=== PATIENT | female | born 1945 | race Caucasian/White ===

== ENCOUNTER → 2020-02-23 | Outpatient (CLI) | payer MEDICARE ==
[2019-04-29 21:17] VITALS: BP 156/80
[~2020-02-23] MED LIST: AMLODIPINE BES2.5 MG PO; ASPIRIN E.C. 8181 MG PO; BACTRIM DS TAB1 EACH PO; CELEXA 20MG20 MG/TA1 PO; CELLCEPT500 MG PO; FLOVENT DI50 MCG/Act IH; LEVOTHYROXIN0.088 MG PO; LINZESS145 MCG PO; LOSARTAN POTAS100 MG PO; MEGA BIOTIN10000 MCG PO; MUCUS RELIEF600 MG PO; MULTIVITAMIN1 SGL PO; MYCELEX10 MG/TAB PO; NATURE'S BLEND400 IU PO; NUVIGIL150 MG PO; ONDANSETRON HYDR4 MG PO; PANTOPRAZOLE SO40 MG PO; PRAVASTATIN SOD20 MG PO; PREDNISONE 5MG5 MG PO; ROPINIROLE HY0.25 MG PO; SINGULAIR 110 MG/TAB PO; TACROLIMUS1 MG PO; VENLAFAXINE HCL75 M3 PO; VITAMIN D32000 UNI1 PO; ZANTAC150 M1 PO; ZOVIRAX200 M1 PO; ZYRTEC10 M3 PO
== END ==
LOC: MAMMO 14:23
DX: Z13.820 Encounter for screening for osteoporosis (principal); M85.851 Other specified disorders of bone density and structure, right thigh; M85.852 Other specified disorders of bone density and structure, left thigh; M85.88 Other specified disorders of bone density and structure, other site

== ENCOUNTER 2021-03-02 09:50 | Outpatient (RCR) | payer MEDICARE ==
[2019-04-29 21:17] VITALS: BP 156/80
== END 2021-05-31 | disposition still patient (30) ==
LOC: PT
DX: M79.605 Pain in left leg (principal); M25.552 Pain in left hip

== ENCOUNTER → 2021-11-20 | Outpatient (CLI) | payer MEDICARE | LOC: LAB 13:44 | DX: R07.9 Chest pain, unspecified (principal); Z94.2 Lung transplant status ==

== ENCOUNTER → 2022-02-26 | Outpatient (CLI) | payer MEDICARE | LOC: RAD 15:15 → MAMMO 15:15 → RAD 15:19 | DX: Z13.820 Encounter for screening for osteoporosis (principal); M85.89 Other specified disorders of bone density and structure, multiple sites ==

== ENCOUNTER → 2022-05-07 | Outpatient (CLI) | payer MEDICARE | LOC: RAD 14:43 | DX: M51.36 Other intervertebral disc degeneration, lumbar region (principal); M51.37 Other intervertebral disc degeneration, lumbosacral region; M43.16 Spondylolisthesis, lumbar region; M43.17 Spondylolisthesis, lumbosacral region; M40.46 Postural lordosis, lumbar region; G47.33 Obstructive sleep apnea (adult) (pediatric); F32.1 Major depressive disorder, single episode, moderate; J84.10 Pulmonary fibrosis, unspecified; M76.30 Iliotibial band syndrome, unspecified leg; K90.9 Intestinal malabsorption, unspecified; M85.80 Other specified disorders of bone density and structure, unspecified site; R73.9 Hyperglycemia, unspecified; Z94.2 Lung transplant status ==

== ENCOUNTER 2022-05-28 13:42 | Emergency (ER) | payer MEDICARE ==
[~2022-05-28] VITALS: Ht 154.9 cm; Wt 75.9 kg
[2022-05-28 14:34] LABS: HEMATOCRIT 39.4 % (37.0-47.0); HEMOGLOBIN 12.5 g/dL (12.5-16.0); MEAN CELL VOLUME 93 fl (78-100); MEAN CORPUSCULAR HEMOGLOBIN 30 pg (27-31); MEAN CORPUSCULAR HGB CONC 32 g/dL (33-37); MEAN PLATELET VOLUME 10.4 fl (7.4-10.4); PLATELET COUNT 271 K/mm3 (130-400); RED BLOOD COUNT 4.23 M/mm3 (4.10-5.30); RED CELL DISTRIBUTION WIDTH 13.7 % (11.5-14.5); WHITE BLOOD COUNT 7.7 K/mm3 (4.8-10.8)
[2022-05-28 14:41] LABS: POTASSIUM 4.2 mmol/L (3.5-5.1); SODIUM 134 mmol/L (136-145)
[2022-05-28 14:42] LABS: CALCIUM 9.7 mg/dL (8.3-10.5)
[2022-05-28 14:44] LABS: GLUCOSE 144 mg/dL (65-105); TOTAL PROTEIN 7.3 g/dL (6.2-8.1)
[2022-05-28 14:45] LABS: CARBON DIOXIDE 25 mmol/L (23-31); TOTAL BILIRUBIN 0.4 mg/dL (0.2-1.2)
[2022-05-28 14:49] LABS: AST-SGOT 24 U/L (5-34)
[2022-05-28 14:50] LABS: ALT/SGPT 21 U/L (0-55); PARTIAL THROMBOPLASTIN TIME 22.6 SECONDS (21.0-32.0); PROTHROMBIN TIME 10.4 SECONDS (9.0-12.0)
[2022-05-28 14:53] LABS: D-DIMER 0.49 mg/L FEU (0.15-0.50)
[2022-05-28 14:56] LABS: LYMPHOCYTE 9 % (20-51); MONOCYTE 5 % (3-10); NEUTROPHILS 85 % (42-75)
[2022-05-28 14:58] LABS: TROPONIN-I < 0.030 ng/mL (<0.030)
[2022-05-28 16:17] LABS: URINE APPEARANCE CLEAR; URINE COLOR LT YELLOW
[2022-05-28 16:18] LABS: PH-URINE 6.5 (5.0 - 8.0); URINE BILIRUBIN NEGATIVE (NEGATIVE); URINE BLOOD NEGATIVE (NEGATIVE); URINE GLUCOSE NEGATIVE (NEGATIVE); URINE KETONE NEGATIVE (NEGATIVE); URINE LEUKOCYTE ESTERASE NEGATIVE (NEGATIVE); URINE NITRATE NEGATIVE (NEGATIVE); URINE PROTEIN(semi-quant) NEGATIVE (NEGATIVE); URINE UROBILINOGEN NORMAL (NORMAL); URINE WBC 0-1 /hpf (0-3)
[2022-05-28 17:56] VITALS: BP 126/88
== END 2022-05-28 17:45 | disposition home or self-care (01) ==
LOC: ED 13:42
PROVIDERS: Nurse Practitioner
DX: E87.1 Hypo-osmolality and hyponatremia (principal); Z20.822 Contact with and (suspected) exposure to COVID-19
CPT/HCPCS: J7030

== ENCOUNTER → 2022-07-13 | Outpatient (CLI) | payer MEDICARE ==
[~2022-07-13] VITALS: Ht 154.9 cm; Wt 75.9 kg
[2022-07-13 11:38] VITALS: BP 130/71
== END ==
LOC: AMSURD 10:01
DX: Z94.2 Lung transplant status (principal)

== ENCOUNTER → 2022-07-23 | Outpatient (CLI) | payer MEDICARE ==
[~2022-07-23] VITALS: Ht 154.9 cm; Wt 72.7 kg
[~2022-07-23] MED LIST changes: +AMLODIPINE BESYL5 MG PO; +ATROVENT NASAL15 ML NS; +AZITHROMYCIN 500MGPK PO; +CLARITIN10 M1 PO; +CLOPIDOGREL75 M2 PO; +MAGNESIUM OXID400 MG PO; +METFORMIN ER500 MG PO; +NITROGLYCERIN0.4 M1 SL; +NYSTATIN 100MU/M1 ML PO; +ROSUVASTATIN CA10 MG PO; +TRIAMTERENE AND1 CAP PO; +VENLAFAXINE HY150 MG PO; +WELLBUTRIN PO
[2022-07-23 11:52] VITALS: BP 117/66
[2022-07-23 12:20] VITALS: BP 120/66
== END ==
LOC: AMSURD 11:32
DX: Z79.899 Other long term (current) drug therapy (principal)

== ENCOUNTER → 2022-09-04 | Outpatient (CLI) | payer MEDICARE ==
[2022-09-04 10:31] LABS: ALBUMIN 4.3 g/dL (3.4-4.8)
[2022-09-04 10:33] LABS: CALCIUM 9.9 mg/dL (8.3-10.5)
[2022-09-04 10:34] LABS: BASO # 0.03 K/mm3 (0.02-0.10); EOS % 1.5 % (1.0-5.0); HEMATOCRIT 42.9 % (37.0-47.0); HEMOGLOBIN 13.7 g/dL (12.5-16.0); LYMPH# 1.77 K/mm3 (1.50-4.00); MEAN CELL VOLUME 93 fl (78-100); MEAN CORPUSCULAR HEMOGLOBIN 30 pg (27-31); MEAN CORPUSCULAR HGB CONC 32 g/dL (33-37); MEAN PLATELET VOLUME 10.7 fl (7.4-10.4); NEU # 4.28 K/mm3 (1.40-6.50); PLATELET COUNT 314 K/mm3 (130-400); RED CELL DISTRIBUTION WIDTH 13.4 % (11.5-14.5); TOTAL PROTEIN 7.1 g/dL (6.2-8.1); WHITE BLOOD COUNT 6.9 K/mm3 (4.8-10.8)
[2022-09-04 10:36] LABS: TOTAL BILIRUBIN 0.5 mg/dL (0.2-1.2)
== END ==
LOC: LAB 10:06
DX: Z48.24 Encounter for aftercare following lung transplant (principal)

== ENCOUNTER → 2022-11-16 | Outpatient (CLI) | payer MEDICARE | LOC: LAB 12:54 | DX: Z20.822 Contact with and (suspected) exposure to COVID-19 (principal) ==

== ENCOUNTER → 2022-11-22 | Outpatient (CLI) | payer MEDICARE ==
[~2022-11-22] VITALS: Ht 157.5 cm; Wt 74.0 kg
[~2022-11-22] MED LIST changes: +ACYCLOVIR200 M1 PO; +AMOXICILLIN 50500 MG PO; +ASTAGRAF XL0.5 MG PO; +BIOTIN10000 MCG PO; +CALCIUM CARBON500 M1 PO; +CLARITIN LIQUI-10 MG PO; +COQ-1030 MG PO; +COZAAR100 MG PO; +CRESTOR 10MG10 MG PO; +DECARA1250 MCG PO; +EFFEXOR XR150 M1 PO; +FISH OIL 1,4001 EACH PO; +FLUTICASON0.05 MG/AC NS; +GLUCOPHAGE PO; +GOOD SENSE ASPI81 M1 PO; +LASIX20 M1 PO; +LEVO-T88 MCG PO; +MAGNESIUM400 MG PO; +MANNOSE; +MILLIPRED5 MG PO; +MOTION SICKNESS25 M2 PO; +MULTIVITAMIN1 EACH PO; +NITROSTAT0.4 M1 SL; +NORVASC2.5 MG PO; +PHENERGAN 25 TA25 MG PO; +PROTONIX40 MG/Pack PO; +RANITIDINE PO; +SINGULAIR PO; +WELLBUTRIN XL150 M2 PO; +ZITHROMAX TRI-500 MG PO; +ZOFRAN ODT4 MG PO; +[UNRECOGNIZED DRUG - OTHER] IM
[2022-11-22 10:35] VITALS: BP 130/76
[2022-11-22 10:55] VITALS: BP 138/80
== END ==
LOC: AMSURD 10:01
DX: M85.80 Other specified disorders of bone density and structure, unspecified site (principal)
CPT/HCPCS: J1740

== ENCOUNTER 2023-05-29 10:27 | Emergency (ER) | payer MEDICARE ==
[~2023-05-29] VITALS: Ht 154.9 cm; Wt 77.8 kg
[2023-05-29 10:50] LABS: BASO # 0.03 K/mm3 (0.02-0.10); EOS # 0.04 K/mm3 (0.04-0.40); EOS % 0.4 % (1.0-5.0); HEMATOCRIT 39.4 % (37.0-47.0); HEMOGLOBIN 12.4 g/dL (12.5-16.0); LYMPH# 1.47 K/mm3 (1.50-4.00); MEAN CELL VOLUME 97 fl (78-100); MEAN CORPUSCULAR HEMOGLOBIN 30 pg (27-31); MEAN CORPUSCULAR HGB CONC 32 g/dL (33-37); MEAN PLATELET VOLUME 10.4 fl (7.4-10.4); MONO # 1.16 K/mm3 (0.20-0.80); NEU # 8.06 K/mm3 (1.40-6.50); PLATELET COUNT 318 K/mm3 (130-400); RED BLOOD COUNT 4.08 M/mm3 (4.10-5.30); RED CELL DISTRIBUTION WIDTH 13.6 % (11.5-14.5); WHITE BLOOD COUNT 10.8 K/mm3 (4.8-10.8)
[2023-05-29 10:56] LABS: POTASSIUM 3.4 mmol/L (3.5-5.1); SODIUM 137 mmol/L (136-145)
[2023-05-29 10:57] LABS: CALCIUM 9.6 mg/dL (8.3-10.5)
[2023-05-29 10:58] LABS: GLUCOSE 129 mg/dL (65-105)
[2023-05-29 10:59] LABS: TOTAL PROTEIN 6.5 g/dL (6.2-8.1)
[2023-05-29 11:00] LABS: CARBON DIOXIDE 23 mmol/L (23-31); TOTAL BILIRUBIN 0.5 mg/dL (0.2-1.2)
[2023-05-29 11:04] LABS: AST-SGOT 25 U/L (5-34)
[2023-05-29 11:05] LABS: ALT/SGPT 24 U/L (0-55)
[2023-05-29 11:14] LABS: TROPONIN-I < 0.030 ng/mL (<0.030)
[2023-05-29] MEDS ORDERED: COQ-10100 MG PO (11:36)
[2023-05-29] MEDS ORDERED: VITAMIN E100 UNI1 PO (11:37)
[2023-05-29] MEDS ORDERED: MANNOSE PO (11:38)
[2023-05-29] MEDS ORDERED: VITAMIN K100 MC1 PO (11:38)
[2023-05-29] MEDS ORDERED: IPRATROPIUM BROMIDE (11:39)
[2023-05-29] MEDS ORDERED: VITAMIN B COMPL1 SGL PO (11:39)
[2023-05-29] MEDS ORDERED: VITAMIN C PUR1000 MG PO (11:40)
[2023-05-29] MEDS ORDERED: CRESTOR 10MG10 MG PO (11:40)
[2023-05-29] MEDS ORDERED: PREDNISONE1 MG PO (11:41)
[2023-05-29] MEDS ORDERED: DICLOFENAC SOD100 GM TP (11:42)
[2023-05-29] MEDS ORDERED: PROAIR HFA0.09 MG/AC IH (11:55)
[2023-05-29 12:16] VITALS: BP 155/75
== END 2023-05-29 12:23 | disposition home or self-care (01) ==
LOC: ED 10:27
PROVIDERS: Family Medicine
DX: U07.1 COVID-19 (principal); R06.02 Shortness of breath; R05.9 Cough, unspecified; R79.89 Other specified abnormal findings of blood chemistry; Z88.1 Allergy status to other antibiotic agents; Z73.0 Burn-out
CPT/HCPCS: J7030

== ENCOUNTER → 2023-07-04 | Outpatient (CLI) | payer MEDICARE ==
[~2023-07-04] VITALS: Ht 154.9 cm; Wt 75.0 kg
[~2023-07-04] MED LIST changes: +COQ-10100 MG PO; +DICLOFENAC SOD100 GM TP; +IPRATROPIUM BROMIDE; +MANNOSE PO; +PREDNISONE1 MG PO; +PROAIR HFA0.09 MG/AC IH; +VITAMIN B COMPL1 SGL PO; +VITAMIN C PUR1000 MG PO; +VITAMIN E100 UNI1 PO; +VITAMIN K100 MC1 PO
[2023-07-04 15:51] VITALS: BP 114/70
== END ==
LOC: AMSURD 15:13
DX: M85.80 Other specified disorders of bone density and structure, unspecified site (principal)
CPT/HCPCS: J1740

== ENCOUNTER → 2023-10-28 | Outpatient (CLI) | payer MEDICARE | LOC: RAD 11:57 | DX: S92.352A Displaced fracture of fifth metatarsal bone, left foot, initial encounter for closed fracture (principal); X58.XXXA Exposure to other specified factors, initial encounter ==

== ENCOUNTER → 2023-11-18 | Outpatient (CLI) | payer MEDICARE | LOC: RAD 10:04 | DX: M79.672 Pain in left foot (principal) ==

== ENCOUNTER → 2023-12-16 | Outpatient (CLI) | payer MEDICARE | LOC: LAB 15:31 | DX: I35.1 Nonrheumatic aortic (valve) insufficiency (principal); Z94.2 Lung transplant status; I12.9 Hypertensive chronic kidney disease with stage 1 through stage 4 chronic kidney disease, or unspecified chronic kidney disease; N18.31 Chronic kidney disease, stage 3a ==

== ENCOUNTER → 2023-12-17 | Outpatient (CLI) | payer MEDICARE | LOC: RAD 14:24 | DX: J84.10 Pulmonary fibrosis, unspecified (principal); I35.1 Nonrheumatic aortic (valve) insufficiency; I13.10 Hypertensive heart and chronic kidney disease without heart failure, with stage 1 through stage 4 chronic kidney disease, or unspecified chronic kidney disease; N18.31 Chronic kidney disease, stage 3a; Z94.2 Lung transplant status ==

== ENCOUNTER → 2024-02-12 | Outpatient (CLI) | payer MEDICARE ==
[~2024-02-12] MED LIST changes: +CEFDINIR300 MG PO; +CIPRO500 M1 PO; +METRONIDAZOLE500 M1 PO; +POTASSIUM CHLO10 ME8 PO
[2024-04-05 12:49] LABS: ALBUMIN 4.2 g/dL (3.4-4.8); CALCIUM 10.3 mg/dL (8.3-10.5); MAGNESIUM 1.62 mg/dL (1.60-2.60); TOTAL BILIRUBIN 0.3 mg/dL (0.2-1.2)
== END ==
LOC: LAB 08:00
PROVIDERS: Internal Medicine Cardiovascular Disease
DX: I25.10 Atherosclerotic heart disease of native coronary artery without angina pectoris (principal); I12.9 Hypertensive chronic kidney disease with stage 1 through stage 4 chronic kidney disease, or unspecified chronic kidney disease; N18.30 Chronic kidney disease, stage 3 unspecified; J84.9 Interstitial pulmonary disease, unspecified; E78.5 Hyperlipidemia, unspecified; Z94.2 Lung transplant status

== ENCOUNTER 2024-03-21 16:48 | Emergency (ER) | payer MEDICARE ==
[~2024-03-21] VITALS: Ht 152.4 cm; Wt 73.2 kg
[~2024-03-21 16:48] MED LIST changes: -CEFDINIR300 MG PO; -CIPRO500 M1 PO
[2024-03-21 18:38] LABS: URINE APPEARANCE SLIGHTLY CLOUDY (CLEAR); URINE COLOR YELLOW (YELLOW)
[2024-03-21 18:39] LABS: CLUE CELLS NOT OBSERVED (Not Observd); URINE BILIRUBIN NEGATIVE (NEGATIVE); URINE BLOOD 2+ (NEGATIVE); URINE GLUCOSE NEGATIVE (NEGATIVE); URINE KETONE NEGATIVE (NEGATIVE); URINE LEUKOCYTE ESTERASE 2+ (NEGATIVE); URINE NITRATE NEGATIVE (NEGATIVE); URINE PROTEIN(semi-quant) NEGATIVE (NEGATIVE); URINE WBC 16-30 /hpf (0-3)
[2024-03-21] MEDS ORDERED: CEFDINIR300 MG PO (19:10)
[2024-03-21] MEDS ORDERED: Cefdinir 300 MG CAP PO ONE (19:15)
[2024-03-21 19:37] VITALS: BP 125/80
[2024-03-25] MEDS ORDERED: CIPRO500 M1 PO (14:23)
== END 2024-03-21 19:37 | disposition home or self-care (01) ==
LOC: ED 16:48
PROVIDERS: Family Medicine
DX: N30.90 Cystitis, unspecified without hematuria (principal); R42 Dizziness and giddiness
CPT/HCPCS: Q0111

== ENCOUNTER → 2024-03-25 | Outpatient (CLI) | payer MEDICARE ==
[~2024-03-25] MED LIST changes: +CEFDINIR300 MG PO; +CIPRO500 M1 PO
[2024-03-25 12:40] LABS: CLUE CELLS NOT OBSERVED (Not Observd)
== END ==
LOC: LAB 11:32
PROVIDERS: Family Medicine
DX: N89.8 Other specified noninflammatory disorders of vagina (principal)
CPT/HCPCS: Q0111

== ENCOUNTER 2024-05-03 11:56 | Emergency (ER) | payer MEDICARE ==
[~2024-05-03] VITALS: Ht 152.4 cm; Wt 72.3 kg
[2024-05-03 12:53] LABS: BASO # 0.03 K/mm3 (0.02-0.10); EOS # 0.05 K/mm3 (0.04-0.40); EOS % 0.6 % (1.0-5.0); HEMOGLOBIN 12.9 g/dL (12.5-16.0); LYMPH# 0.81 K/mm3 (1.50-4.00); MEAN CELL VOLUME 92 fl (78-100); MEAN CORPUSCULAR HEMOGLOBIN 30 pg (27-31); MEAN CORPUSCULAR HGB CONC 32 g/dL (33-37); MONO # 0.96 K/mm3 (0.20-0.80); NEU # 7.02 K/mm3 (1.40-6.50); PLATELET COUNT 217 K/mm3 (130-400); RED BLOOD COUNT 4.34 M/mm3 (4.10-5.30); RED CELL DISTRIBUTION WIDTH 13.8 % (11.5-14.5); WHITE BLOOD COUNT 8.9 K/mm3 (4.8-10.8)
[2024-05-03 12:59] LABS: ALBUMIN 4.2 g/dL (3.4-4.8)
[2024-05-03 13:01] LABS: TOTAL PROTEIN 7.2 g/dL (6.2-8.1)
[2024-05-03 13:03] LABS: TOTAL BILIRUBIN 0.4 mg/dL (0.2-1.2)
[2024-05-03 13:06] LABS: D-DIMER 0.32 mg/L FEU (0.15-0.50)
[2024-05-03 14:25] VITALS: BP 121/67
== END 2024-05-03 14:31 | disposition home or self-care (01) ==
LOC: ED 11:56
PROVIDERS: Physician Assistant
DX: R55 Syncope and collapse (principal); E87.6 Hypokalemia

== ENCOUNTER → 2024-07-24 | Outpatient (CLI) | payer MEDICARE ==
[2024-07-24 16:51] LABS: URINE WBC 0 /hpf (0-3)
[2024-07-24 17:05] LABS: URINE APPEARANCE CLEAR (CLEAR); URINE BILIRUBIN NEGATIVE (NEGATIVE); URINE BLOOD NEGATIVE (NEGATIVE); URINE COLOR YELLOW (YELLOW); URINE GLUCOSE NEGATIVE (NEGATIVE); URINE KETONE NEGATIVE (NEGATIVE); URINE PROTEIN(semi-quant) NEGATIVE (NEGATIVE)
[2024-07-24 17:06] LABS: URINE LEUKOCYTE ESTERASE NEGATIVE (NEGATIVE); URINE NITRATE POSITIVE (NEGATIVE)
== END ==
LOC: LAB 16:46
PROVIDERS: Internal Medicine
DX: N39.0 Urinary tract infection, site not specified (principal)

== ENCOUNTER → 2024-08-10 | Outpatient (CLI) | payer MEDICARE ==
[~2024-08-10] VITALS: Ht 152.4 cm; Wt 72.3 kg
[~2024-08-10] MED LIST changes: +IBANDRONATE 3 MG/3 ML IV ONE
[2024-08-10 13:11] VITALS: BP 130/72
== END ==
LOC: AMSURD 12:48
DX: M85.80 Other specified disorders of bone density and structure, unspecified site (principal)
CPT/HCPCS: J1740

== ENCOUNTER → 2024-09-08 | Outpatient (CLI) | payer MEDICARE ==
[~2024-09-08] MED LIST changes: -IBANDRONATE 3 MG/3 ML IV ONE
[2024-09-08 10:26] LABS: BASO # 0.03 K/mm3 (0.02-0.10); EOS # 0.08 K/mm3 (0.04-0.40); EOS % 1.1 % (1.0-5.0); HEMATOCRIT 42.6 % (37.0-47.0); HEMOGLOBIN 13.3 g/dL (12.5-16.0); LYMPH# 1.81 K/mm3 (1.50-4.00); MEAN CELL VOLUME 96 fl (78-100); MEAN CORPUSCULAR HEMOGLOBIN 30 pg (27-31); MEAN CORPUSCULAR HGB CONC 31 g/dL (33-37); NEU # 4.75 K/mm3 (1.40-6.50); PLATELET COUNT 246 K/mm3 (130-400); RED BLOOD COUNT 4.45 M/mm3 (4.10-5.30); RED CELL DISTRIBUTION WIDTH 13.8 % (11.5-14.5); WHITE BLOOD COUNT 7.4 K/mm3 (4.8-10.8)
[2024-09-08 10:32] LABS: ALBUMIN 4.3 g/dL (3.4-4.8)
[2024-09-08 10:34] LABS: CALCIUM 9.7 mg/dL (8.3-10.5)
[2024-09-08 10:35] LABS: TOTAL PROTEIN 7.1 g/dL (6.2-8.1)
[2024-09-08 10:37] LABS: TOTAL BILIRUBIN 0.5 mg/dL (0.2-1.2)
[2024-09-08 12:08] LABS: MAGNESIUM 1.61 mg/dL (1.60-2.60)
== END ==
LOC: LAB 10:07
PROVIDERS: Internal Medicine
DX: I10 Essential (primary) hypertension (principal); K90.9 Intestinal malabsorption, unspecified; Z48.24 Encounter for aftercare following lung transplant

== ENCOUNTER 2024-09-26 11:51 | Emergency (ER) | payer MEDICARE ==
[~2024-09-26] VITALS: Ht 152.4 cm; Wt 68.7 kg
[2024-09-26 12:50] LABS: ALBUMIN 3.9 g/dL (3.4-4.8)
[2024-09-26 12:51] LABS: CALCIUM 9.5 mg/dL (8.3-10.5)
[2024-09-26 12:52] LABS: BASO # 0.02 K/mm3 (0.02-0.10); EOS # 0.11 K/mm3 (0.04-0.40); EOS % 1.4 % (1.0-5.0); HEMATOCRIT 40.4 % (37.0-47.0); HEMOGLOBIN 13.1 g/dL (12.5-16.0); LYMPH# 0.65 K/mm3 (1.50-4.00); MEAN CELL VOLUME 96 fl (78-100); MEAN CORPUSCULAR HEMOGLOBIN 31 pg (27-31); MEAN CORPUSCULAR HGB CONC 32 g/dL (33-37); MEAN PLATELET VOLUME 11.5 fl (7.4-10.4); NEU # 5.53 K/mm3 (1.40-6.50); PLATELET COUNT 215 K/mm3 (130-400); RED CELL DISTRIBUTION WIDTH 13.8 % (11.5-14.5); TOTAL PROTEIN 7.1 g/dL (6.2-8.1); WHITE BLOOD COUNT 7.6 K/mm3 (4.8-10.8)
[2024-09-26 12:54] LABS: TOTAL BILIRUBIN 0.4 mg/dL (0.2-1.2)
[2024-09-26] MEDS ORDERED: LEVOFLOXACIN750 MG PO (14:28)
[2024-09-26] MEDS ORDERED: levoFLOXacin 250 MG TABLET PO ONE (14:30)
[2024-09-26 14:33] VITALS: BP 134/76
== END 2024-09-26 14:33 | disposition home or self-care (01) ==
LOC: ED 11:51
PROVIDERS: Family Medicine
DX: J84.10 Pulmonary fibrosis, unspecified (principal); Z94.2 Lung transplant status; Z88.1 Allergy status to other antibiotic agents; Z79.620 Long term (current) use of immunosuppressive biologic

== ENCOUNTER → 2024-10-26 | Outpatient (CLI) | payer MEDICARE ==
[~2024-10-26] MED LIST changes: +LEVOFLOXACIN750 MG PO
== END ==
LOC: LAB 09:37
DX: E03.9 Hypothyroidism, unspecified (principal); M81.0 Age-related osteoporosis without current pathological fracture

== ENCOUNTER → 2024-11-10 | Outpatient (CLI) | payer MEDICARE ==
[2024-11-10 17:19] LABS: URINE APPEARANCE CLEAR (CLEAR); URINE BILIRUBIN NEGATIVE (NEGATIVE); URINE BLOOD NEGATIVE (NEGATIVE); URINE COLOR YELLOW (YELLOW); URINE GLUCOSE NEGATIVE (NEGATIVE); URINE KETONE NEGATIVE (NEGATIVE); URINE LEUKOCYTE ESTERASE TRACE (NEGATIVE); URINE NITRATE NEGATIVE (NEGATIVE); URINE PROTEIN(semi-quant) NEGATIVE (NEGATIVE)
[2024-11-10 17:22] LABS: URINE MUCUS PRESENT (NOT PRESENT)
== END ==
LOC: LAB 16:49
DX: N39.0 Urinary tract infection, site not specified (principal); B96.5 Pseudomonas (aeruginosa) (mallei) (pseudomallei) as the cause of diseases classified elsewhere